=== PATIENT | male | born 1955 | race Caucasian/White ===

== ENCOUNTER 2020-02-26 20:10 | Inpatient (IN) | payer SELFPAY ==
[2020-02-26 20:53] LABS: #Eosinphils 0.1 thou/uL (0.0-0.7); #Lymphocytes 1.6 thou/uL (1.20-3.40); #Monocytes 0.6 thou/uL (0.11-0.59); #Neutrophils 5.9 thou/uL (1.40-6.50); %Basophils 0.3 % (0.0-1.0); %Eosinophils 1.6 % (0.0-10.0); %Lymphocytes 19.9 % (21.0-51.0); %Monocytes 7.3 % (0.0-10.0); %Neutrophils 70.9 % (42.0-75.0); Hemoglobin 7.1 g/dL (14.0-18.0); Mean Corpuscular HGB CONC 34.3 g/dL (32.0-36.0); Mean Corpuscular Hemoglobin 30.5 pg (27.0-31.0); Mean Corpuscular Volume 89.1 fL (78.0-98.0); Mean Platelet Volume 6.6 fL (7.4-10.4); Platelet Count 166 thou/uL (130-400); RBC Distribution Width 12.1 % (11.5-14.5); Red Blood Cell (RBC) Count 2.33 mill/uL (4.70-6.10); White Blood Cell (WBC) Count 8.3 thou/uL (4.8-10.8)
[2020-02-26 21:09] LABS: ALT (SGPT) 15 U/L (8-55); AST (SGOT) 18 U/L (5-34); Albumin 3.5 g/dL (3.4-4.8); Alkaline Phosphatase 31 U/L (40-110); Anion Gap 11 mmol/L (10-20); BUN (Urea Nitrogen) 41 mg/dL (8.4-25.7); Bilirubin, Total 0.2 mg/dL (0.2-1.2); Calc. Creatinine Clearance 0 mL/min (70-130); Calcium 8.5 mg/dL (7.8-10.44); Carbon Dioxide 21 mmol/L (23-31); Chloride 109 mmol/L (98-107); Estimated GFR-MDRD Greater than 90; Globulin 2.1 g/dL (2.4-3.5); Glucose 120 mg/dL (80-115); Potassium 3.8 mmol/L (3.5-5.1); Protein, Total 5.6 g/dL (5.8-8.1); Sodium 137 mmol/L (136-145)
[2020-02-26] MEDS ORDERED: Pantoprazole 40 MG VIAL ONE ×2 (22:30→22:31)
[2020-02-26] MEDS ORDERED: Ondansetron PF 4 MG/2 ML Vial IVP PRN (23:09)
[2020-02-26] MEDS ORDERED: Ondansetron ODT 4 MG TAB PO PRN (23:09)
[2020-02-26] MEDS ORDERED: Acetaminophen 325 MG TAB PO PRN (23:09)
[2020-02-26] MEDS ORDERED: Sodium Chloride 0.9% (PF) 10 ML VIAL FS PRN (23:16)
--- NOTE | 2020-02-26 23:23 | PDOC.FPRHP ---
- History of Present Illness Chief Complaint: lightheadedness History of Present Illness: 64 y/o M with pmhx of DM II, hypothyroidism, symptomatic anemia, and CAD s/p 2 stents presents to ED via EMS after having a near syncopal episode this afternoon. Pt states symptoms of LH and dizziness started yesterday evening. The symptoms are brought on by sitting up or standing up. The pt admits to similar symptoms last June. He was given 2 units of blood than and had an EGD and colonoscopy. He reports findings of "minor irritation in colon from those scopes." He had been on both 81 mg ASA and plavix, and the plavix was d/c'd at that time. PT had X2 stents placed the preceeding year, warranting the plavix. Pt states he has had melena stools since that time when he was started on PO iron supplementation. Pt denies any bloody stools or emesis. Admits to N/V this afternoon. Denies CP and palpitations, but reports exertional SOB. ED course: Brought in via EMS. Evaluated by Dr. Conrad. Hgb 7.1 Pt was given 2 L NS, and 2 units pRBC's. - Allergies/Adverse Reactions Allergies Allergy/AdvReac Type Severity Reaction Status Date / Time No Known Drug Allergies Allergy Verified 02/27/20 06:06 - Home Medications Medication Instructions Recorded Confirmed Type Aspirin [Aspirin EC] 81 mg PO DAILY 02/26/20 02/26/20 History Ferrous Sulfate [Feosol] 325 mg PO DAILY 02/26/20 02/26/20 History Levothyroxine Sodium 137 mcg PO DAILY 02/26/20 02/26/20 History Magnesium Oxide [Magnesium] 400 mg PO DAILY 02/26/20 02/26/20 History metFORMIN [Glucophage] 500 mg PO BID-WM 02/26/20 02/26/20 History - History PMHx: DM II, CAD s/p X2 stents, HTN, Hypothyroidism PSHx: X2 stent placement 2018, L elbow fx orif FHx: Brothers: CAD Father: DM II Mother: DM II Social: Works as an over the road urban planner. quit smoking cigarettes 8 years ago, has a hx of smoking 2 ppd for "many years" Drinks one etoh beverage a week. Denies ilicit drug use. - Review of Systems General: denies: fever/chills Eyes: denies: vision changes ENT: reports: nasal congestion. denies: rhinorrhea Respiratory: reports: congestion, exercise intolerance. denies: cough Cardiovascular: denies: chest pain, palpitation, edema Gastrointestinal: reports: nausea, vomiting, GI bleeding. denies: diarrhea, constipation, abdominal pain Skin: denies: rashes, jaundice Musculoskeletal: reports: pain (L shoulder chronic rotato cuff tear), arthritis/ arthralgias Neurological: reports: other (near syncope Headache this AM). denies: syncope Psychological: denies: anxiety, depression - Vital signs BP: 130/73 HR: 71 RR: 16 Tmax: 98.6 F Pox: 99% on ra Wt: 102.1 kg - Physical Exam Constitutional: NAD, awake, alert and oriented, well developed HEENT: normocephalic and atraumatic, PERRLA, EOMI, conjunctiva clear, no scleral icterus, grossly normal vision, grossly normal hearing, MMM Neck: supple, trachea midline Heart: RRR, normal S1/S2, no murmurs/rubs/gallops, pulses present, no edema Lungs: CTAB, no respiratory distress, good air movement, no rales/rhonchi, no wheezing, no retractions Abdomen: soft, non-tender, bowel sounds present, other (obese) Musculoskeletal: normal structure, normal tone, ROM grossly normal, other ( subjective pain with ROM L shoulder) Neurological: no focal deficit Skin: no rash/lesions, good turgor, capillary refill <2 seconds -Skin: pallor skin conjunctival pallor Heme/Lymphatic: no unusual bruising or bleeding, no purpura, no petechia Psychiatric: normal mood and affect, good judgment and insight, intact recent and remote memory FMR H&P: Results - Labs Result Diagrams: 02/27/20 04:15 02/27/20 04:15 Lab results: WBC 8.3 thou/uL (4.8-10.8) 02/26/20 20:48 Hgb 7.1 g/dL (14.0-18.0) L 02/26/20 20:48 Hct 20.8 % (42.0-52.0) L 02/26/20 20:48 MCV 89.1 fL (78.0-98.0) 02/26/20 20:48 Plt Count 166 thou/uL (130-400) 02/26/20 20:48 Neutrophils % 70.9 % (42.0-75.0) 02/26/20 20:48 Sodium 137 mmol/L (136-145) 02/26/20 20:48 Potassium 3.8 mmol/L (3.5-5.1) 02/26/20 20:48 Chloride 109 mmol/L (98-107) H 02/26/20 20:48 Carbon Dioxide 21 mmol/L (23-31) L 02/26/20 20:48 BUN 41 mg/dL (8.4-25.7) H 02/26/20 20:48 Creatinine 0.78 mg/dL (0.7-1.3) 02/26/20 20:48 Glucose 120 mg/dL (80-115) H 02/26/20 20:48 Calcium 8.5 mg/dL (7.8-10.44) 02/26/20 20:48 Total Bilirubin 0.2 mg/dL (0.2-1.2) 02/26/20 20:48 AST 18 U/L (5-34) 02/26/20 20:48 ALT 15 U/L (8-55) 02/26/20 20:48 Alkaline Phosphatase 31 U/L (40-110) L 02/26/20 20:48 Serum Total Protein 5.6 g/dL (5.8-8.1) L 02/26/20 20:48 Albumin 3.5 g/dL (3.4-4.8) 02/26/20 20:48 - EKG Interpretation EKG: NSR rate 72 No STEMI FMR H&P: A/P - Problem List (1) Symptomatic anemia Current Visit: Yes Status: Acute Code(s): D64.9 - ANEMIA, UNSPECIFIED (2) Melena Current Visit: Yes Status: Acute Code(s): K92.1 - MELENA (3) Diabetes mellitus type 2 in obese Current Visit: Yes Status: Chronic Code(s): E11.69 - TYPE 2 DIABETES MELLITUS WITH OTHER SPECIFIED COMPLICATION; E66.9 - OBESITY, UNSPECIFIED (4) Hypothyroidism Current Visit: Yes Status: Chronic Code(s): E03.9 - HYPOTHYROIDISM, UNSPECIFIED (5) Presence of stent in coronary artery in patient with coronary artery disease Current Visit: Yes Status: Chronic Code(s): I25.10 - ATHSCL HEART DISEASE OF [place] CORONARY ARTERY W/O ANG PCTRS; Z95.5 - PRESENCE OF CORONARY ANGIOPLASTY IMPLANT AND GRAFT (6) Hx of essential hypertension Current Visit: Yes Status: Chronic Code(s): Z86.79 - PERSONAL HISTORY OF OTHER DISEASES OF THE CIRCULATORY SYSTEM - Plan 64 y/o M admitted to medical obs for further treatment and eval of symptomatic anemia with melena, most likely cause if Upper GI Bleeding 1. Symptomatic anemia - hbg 7.1, sx's near syncope - transfused 2 units pRBCs in ED and received 2 L NS - Trend H/H in AM and then Q8H to monitor for bleeding. - Placed on Ferrous fumerate and vit c for better iron absorption - ordered TIBC, iron, transferrin and ferritin - ordered B12 and folate 2. Melena, most liekly caused by Upper GI Bleeding - ordered FOBT - placed pt on prtonix BID, given bolus and started on drip in ED. - NPO - GI consulted, appreciate recommendations - has hx of GI bleed in with normal EGD and mild irritation in colon per pt. 3. Normocytic Anemia - TIBC, iron, Ferritin, and transferrin ordered - B12 and folate ordered - could be acute blood loss, combination macr and micro anemia, or chronic disease 4. Hypothyroidism - continue levothyroxine 137 mcg daily - ordered TSH 5. DM II - continue metformin 500 mg BID - Ordered A1C 6. CAD s/p X2 stents, stable - hold ASA 81 mg at this time until evaluated by GI. - No CP 7. 7. Hx of HTN, stable - Not currently on BP medications - BP 130/73 Code status: full code, MPOA VTE ppx: SCD's Diet: NPO until Seen by GI. Dispo: stable, medical obs <2 midnights anticipated. FMR H&P: Upper Level - Pertinent history 64 y/o M PMHx DM2, hypothyroidism, CAD s/p 2 stents Pt presents because of dizziness with standing and worsened fatigue. He has been diagnosed with iron deficiency anemia and is on iron. He reports dark black stools, but isn't sure if it's due to that. He denies any hematemesis or hematochezia. He has had prior EGD and colonoscopy and reports he had some lesions that didn't get treated. He isn't sure exactly what they were. He reports his lightheadedness is improved after getting fluids. - Pertinent findings Vitals: BP 122/77, HR 76, RR 20, Temp 98.2 PE: Gen - pale, resting comfortably, in NAD HEENT - conjunctival pallor CV - RRR, no murmurs Lungs - CTAB no wheezes Labs: Hb 7.1 - Plan Date/Time: 02/26/20 5689 I, Judi Perez MD, PGY-3, have evaluated this patient and agree with findings/ plan as outlined by commercial intern resident. Pertinent changes/additions are listed here. 1. Acute Symptomatic Anemia Hb 7.1, suspect GI source, but cannot rule out other causes yet -2U PRBC -Trend H/H -Check iron studies, B12, folate, peripheral smear, retic count -FOBT -Consult GI in AM -Protonix IV BID 2. CAD -Hold aspirin due to suspected bleed 3. DM2 -Cont Metformin -Accuchecks -SSI 4. Hypothyroidism -Continue synthroid Diet: NPO Code status: Full VTE ppx: SCD's GI ppx: Protonix Dispo: Obs on medical LOS: < 48 hrs Addendum - Attending - Attending Attestation Date/Time: 02/27/20 5620 I personally evaluated the patient and discussed the management with Dr. Segura and team. I agree with the History, Examination, Assessment and Plan documented above with any addition or exceptions noted below.
[2020-02-27 00:07] VITALS: BMI 29.5
[2020-02-27] MEDS: Sodium Chloride 0.9% 1,000 ML IV SCH ×2 (00:58→06:10)
[2020-02-27 01:04] LABS: Iron 48 ug/dL (65-175); Iron Binding Capacity, Total 258 mcg/dL (261-462); Transferrin, Serum 206 mg/dL (163-344)
[2020-02-27 01:23] LABS: Thyroid Stimulating Hormone 3.8084 uIU/mL (0.35-4.94)
[2020-02-27 03:34] LABS: Ferritin 3.78 ng/mL (22-322)
[2020-02-27 04:50] LABS: Reticulocyte Count 5.4 % (0.5-1.5)
[2020-02-27 05:15] LABS: ALT (SGPT) 14 U/L (8-55); AST (SGOT) 20 U/L (5-34); Albumin 3.6 g/dL (3.4-4.8); Alkaline Phosphatase 31 U/L (40-110); Anion Gap 10 mmol/L (10-20); BUN (Urea Nitrogen) 29 mg/dL (8.4-25.7); Bilirubin, Total 0.2 mg/dL (0.2-1.2); Calc. Creatinine Clearance 151 mL/min (70-130); Calcium 8.3 mg/dL (7.8-10.44); Carbon Dioxide 22 mmol/L (23-31); Chloride 109 mmol/L (98-107); Estimated GFR-MDRD Greater than 90; Globulin 2.1 g/dL (2.4-3.5); Glucose 109 mg/dL (80-115); Potassium 3.7 mmol/L (3.5-5.1); Protein, Total 5.7 g/dL (5.8-8.1); Sodium 137 mmol/L (136-145)
[2020-02-27 06:06] LABS: Band 8 % (5-11); Eosinophils 4 % (0-10); Hemoglobin 7.5 g/dL (14.0-18.0); Lymphocytes 36 % (21-51); MDiff Complete? YES; Mean Corpuscular HGB CONC 33.8 g/dL (32.0-36.0); Mean Corpuscular Hemoglobin 30.6 pg (27.0-31.0); Mean Corpuscular Volume 90.7 fL (78.0-98.0); Mean Platelet Volume 7.4 fL (7.4-10.4); Monocytes 3 % (0-10); Neutrophil 49 % (42-75); Platelet Count 171 thou/uL (130-400); RBC Distribution Width 12.4 % (11.5-14.5); Red Blood Cell (RBC) Count 2.46 mill/uL (4.70-6.10); White Blood Cell (WBC) Count 6.5 thou/uL (4.8-10.8)
[2020-02-27] MEDS: Levothyroxine Sodium 25 MCG TAB PO SCH (06:11)
[2020-02-27] MEDS: Levothyroxine Sodium 112 MCG TAB PO SCH (06:11)
--- NOTE | 2020-02-27 06:53 | PDOC.FM ---
- Subjective Subjective: Pt denies any complaints this morning. No events overnight. Denies any further dizziness but notes he really has not but up and moving around at all. Continues to deny any bright red blood per rectum and states his stools are always dark due to his iron supplement. - Objective Vital Signs & Weight: Vital Signs (12 hours) Temp Pulse Pulse Resp BP BP BP 02/27/20 06:42 97.7 F 66 18 103/67 02/27/20 04:40 97.7 F 60 18 103/64 02/27/20 04:00 97.8 F 65 65 18 116/73 116/73 02/27/20 01:00 02/27/20 00:54 97.7 F 62 18 98/63 02/26/20 23:45 98.6 F 72 20 112/67 02/26/20 23:09 98.0 F 72 18 112/67 BP BP Pulse Ox 02/27/20 06:42 02/27/20 04:40 96 02/27/20 04:00 97 02/27/20 01:00 98/63 02/27/20 00:54 97 02/26/20 23:45 97 02/26/20 23:09 100/63 97 Weight Weight 104.326 kg I&O: 02/25/20 02/26/20 02/27/20 06:59 06:59 06:59 Intake Total 1750 Output Total 950 Balance 800 Result Diagrams: 02/27/20 04:15 02/27/20 04:15 Phys Exam - Physical Examination Constitutional: NAD HEENT: moist MMs Respiratory: clear to auscultation bilateral Cardiovascular: RRR Gastrointestinal: no distention Musculoskeletal: no edema, pulses present Neurological: moves all 4 limbs Psychiatric: normal affect, A&O x 3 Skin: no rash, cap refill <2 seconds Dx/Plan (1) Melena Code(s): K92.1 - MELENA Status: Acute (2) Symptomatic anemia Code(s): D64.9 - ANEMIA, UNSPECIFIED Status: Acute (3) Diabetes mellitus type 2 in obese Code(s): E11.69 - TYPE 2 DIABETES MELLITUS WITH OTHER SPECIFIED COMPLICATION; E66.9 - OBESITY, UNSPECIFIED Status: Chronic (4) Hx of essential hypertension Code(s): Z86.79 - PERSONAL HISTORY OF OTHER DISEASES OF THE CIRCULATORY SYSTEM Status: Chronic (5) Hypothyroidism Code(s): E03.9 - HYPOTHYROIDISM, UNSPECIFIED Status: Chronic (6) Presence of stent in coronary artery in patient with coronary artery disease Code(s): I25.10 - ATHSCL HEART DISEASE OF [place] CORONARY ARTERY W/O ANG PCTRS; Z95.5 - PRESENCE OF CORONARY ANGIOPLASTY IMPLANT AND GRAFT Status: Chronic - Plan Plan: Symptomatic anemia - hbg 7.5 this morning, 2 units ordered - last unit currently transfusing - 4 hr post H&H ordered - iron and ferritin both low - may need infusions in the future - b12 and folate WNL Melena, possible GI Bleed - placed pt on protonix BID - NPO - GI consulted, appreciate recommendations - has hx of GI bleed in with normal EGD and mild irritation in colon per pt. Hypothyroidism - continue levothyroxine 137 mcg daily DM II - continue metformin 500 mg BID CAD s/p X2 stents, stable - hold ASA 81 mg at this time until evaluated by GI. - No CP Hx of HTN, stable - Not currently on BP medications Code status: full code, MPOA VTE ppx: SCD's Diet: NPO until Seen by GI. Dispo: Medical Inpt for symptomatic anemia and suspected GI bleed. GI consult today. Addendum - Attending - Attending Attestation Date/Time: 02/27/20 1202 I personally evaluated the patient and discussed the management with Dr. Melendez. I agree with the History, Examination, Assessment and Plan documented above with any addition or exceptions noted below. Patient here for symptomatic anemia and suspected UGIB. GI consulted. Anemia workup.
[2020-02-27] MEDS: metFORMIN 500 MG TAB PO SCH ×2 (08:19→16:25)
[2020-02-27] MEDS: Pantoprazole 40 MG VIAL IVP SCH ×2 (08:19→20:11)
--- NOTE | 2020-02-27 08:51 | RAD ---
CHEST 1 VIEW: HISTORY: Dizziness. COMPARISON: None. FINDINGS: There is a subtle nodule in the right lung base measuring 5-6 mm. There is a nodule in the right upp er lobe which is relatively dense, likely calcified granuloma. The remainder of the lungs are clear. Cardiac silhouette and mediastinal contours are within normal limits. No pneumothorax or effusion or airspace consolidation. IMPRESSION: A 4-5 mm nodule projects in the right lower lobe. This could be a pulmonary seen en face. Nonemerge nt followup CT of the chest can be beneficial. POS: HOME
[2020-02-27] MEDS ORDERED: Ascorbic Acid 500 mg Chewable Tablet PO SCH (09:00)
[2020-02-27] MEDS ORDERED: Non-Formulary Item 1 EACH (Levothyroxine Sodium [Levothyroxine Sodium] 137 MCG) PO SCH (09:00)
[2020-02-27] MEDS ORDERED: Ferrous Sulfate 325 MG TAB PO SCH (09:00)
[2020-02-27] MEDS ORDERED: Ferrous Fumarate 324 MG TAB PO SCH (09:00)
[2020-02-27] MEDS ORDERED: Pantoprazole 40 MG VIAL IVP SCH ×2 (09:00)
[2020-02-27 12:04] LABS: Reticulocyte Count 5.1 % (0.5-1.5)
[2020-02-27 12:05] LABS: Hemoglobin 8.7 g/dL (14.0-18.0)
--- NOTE | 2020-02-27 12:10 | CON ---
DATE OF CONSULTATION: 02/27/2020 CHIEF COMPLAINT: Weakness. HISTORY OF PRESENT ILLNESS: Mr. 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 He came onto the emergency room because he had similar symptoms back in 06/2019, when he was found to have severe anemia, requiring blood transfusion. He had had stents placed a couple of years before. Last June, he had EGD and colonoscopy in [place], [place], to evaluate for bleeding source. These reportedly only showed a couple of irritated sites, but no obvious bleeding source was identified. He was taken off his Plavix and left on aspirin 81 mg daily. The patient has maintained oral iron supplementation since then. His stools are always dark on that and he has not noticed an acute change with this acute weakness episode. He has had no red blood in the stool. His weight has been stable. No abdominal pain. He was found to have anemia with a hemoglobin of 7.5 in the emergency room last night. His ferritin is low at 3.78. PAST MEDICAL HISTORY: 1. Diabetes mellitus, type 2. 2. Coronary artery disease status post coronary stents. 3. Hypertension. 4. Hypothyroidism. PAST SURGICAL HISTORY: 1. Left elbow surgery. 2. Upper and lower endoscopy last June. 3. Coronary stent placement. FAMILY HISTORY: Negative for GI malignancy. SOCIAL HISTORY: He quit smoking around 8 years ago. He smoked pretty heavily before that. He has 1 alcoholic beverage per week. No drugs. ALLERGIES: NO KNOWN DRUG ALLERGIES. MEDICATIONS: Prior to admission: 1. Aspirin 81 mg daily. 2. Iron sulfate 325 mg daily. 3. Levothyroxine. 4. Magnesium. 5. Metformin. REVIEW OF SYSTEMS: Negative x10 systems reviewed except as stated in the history of present illness. PHYSICAL EXAMINATION: VITAL SIGNS: Temperature 97.8, pulse 65, and blood pressure 119/68. GENERAL: He is in no acute distress. Alert and oriented x3. HEENT: Eyes have no scleral icterus. Oropharynx is clear without lesions. No cervical or supraclavicular lymphadenopathy. LUNGS: Clear to auscultation bilaterally. HEART: Regular rate and rhythm without murmur. ABDOMEN: Soft, nontender, and nondistended. Bowel sounds are present. EXTREMITIES: No lower extremity edema. LABORATORY DATA: Creatinine 0.75, bilirubin 0.2, AST 20, ALT 14, alkaline phosphatase 31, and albumin is 3.6. B12 of 405, folate 14.9, ferritin 3.78, iron 48, and TIBC 258. Hemoglobin 7.5, white blood cell count 6.5, platelets 171, and MCV 90. IMPRESSION: 1. Iron-deficiency anemia. He had anemia as well in last June and required a blood transfusion, and upper and lower endoscopy were performed, but reportedly negative. 2. Coronary artery disease status post stents a couple of years ago or so. He is on 81 mg aspirin daily. RECOMMENDATIONS: 1. Push enteroscopy and colonoscopy tomorrow. If these tests are negative, then outpatient capsule endoscopy can be performed. 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 2. Obtain the report from the previous EGD and colonoscopy from [place] if possible. Job ID: [id number]
[2020-02-27] MEDS: Ferrous Sulfate 325 MG TAB PO SCH (16:25)
[2020-02-27] MEDS: Ascorbic Acid 500 mg Chewable Tablet PO SCH (16:25)
[2020-02-27] MEDS ORDERED: GoLYTELY 4,000 ml Bottle PO SCH (17:00)
[2020-02-28 06:08] LABS: #Eosinphils 0.2 thou/uL (0.0-0.7); #Lymphocytes 1.5 thou/uL (1.20-3.40); #Monocytes 0.6 thou/uL (0.11-0.59); #Neutrophils 3.6 thou/uL (1.40-6.50); %Basophils 0.7 % (0.0-1.0); %Eosinophils 3.8 % (0.0-10.0); %Lymphocytes 25.1 % (21.0-51.0); %Monocytes 10.6 % (0.0-10.0); %Neutrophils 59.8 % (42.0-75.0); Hemoglobin 9.5 g/dL (14.0-18.0); Mean Corpuscular HGB CONC 34.2 g/dL (32.0-36.0); Mean Corpuscular Hemoglobin 31.2 pg (27.0-31.0); Mean Corpuscular Volume 91.2 fL (78.0-98.0); Mean Platelet Volume 7.4 fL (7.4-10.4); Platelet Count 175 thou/uL (130-400); RBC Distribution Width 12.8 % (11.5-14.5); Red Blood Cell (RBC) Count 3.04 mill/uL (4.70-6.10)
[2020-02-28 06:26] LABS: Anion Gap 13 mmol/L (10-20); BUN (Urea Nitrogen) 16 mg/dL (8.4-25.7); Calc. Creatinine Clearance 143 mL/min (70-130); Calcium 8.5 mg/dL (7.8-10.44); Carbon Dioxide 23 mmol/L (23-31); Chloride 108 mmol/L (98-107); Estimated GFR-MDRD Greater than 90; Glucose 104 mg/dL (80-115); Potassium 3.8 mmol/L (3.5-5.1); Sodium 140 mmol/L (136-145)
[2020-02-28] MEDS: Levothyroxine Sodium 25 MCG TAB PO SCH (06:41)
[2020-02-28] MEDS: Levothyroxine Sodium 112 MCG TAB PO SCH (06:41)
--- NOTE | 2020-02-28 07:05 | PDOC.FM ---
- Subjective Subjective: Pt is s/p push enteroscopy and colonoscopy. States he is feeling well, just groggy from the procedure. Discussed plan of care including iron infusion and trending hgb later today. Will discuss op with Dr. Ashraf regarding findings. - Objective Vital Signs & Weight: Vital Signs (12 hours) Temp Pulse Resp BP BP Pulse Ox 02/28/20 04:00 97.7 F 60 18 113/72 95 02/27/20 19:37 97.6 F 63 16 125/77 96 Weight Weight 104.326 kg I&O: 02/27/20 02/28/20 02/29/20 06:59 06:59 06:59 Intake Total 1750 Output Total 950 Balance 800 Result Diagrams: 02/28/20 05:23 02/28/20 05:23 Phys Exam - Physical Examination Constitutional: NAD HEENT: moist MMs, sclera anicteric Respiratory: clear to auscultation bilateral Cardiovascular: RRR Gastrointestinal: soft, non-tender Musculoskeletal: no edema Neurological: moves all 4 limbs Psychiatric: A&O x 3 Skin: no rash Dx/Plan (1) Melena Code(s): K92.1 - MELENA Status: Acute (2) Symptomatic anemia Code(s): D64.9 - ANEMIA, UNSPECIFIED Status: Acute (3) Diabetes mellitus type 2 in obese Code(s): E11.69 - TYPE 2 DIABETES MELLITUS WITH OTHER SPECIFIED COMPLICATION; E66.9 - OBESITY, UNSPECIFIED Status: Chronic (4) Hx of essential hypertension Code(s): Z86.79 - PERSONAL HISTORY OF OTHER DISEASES OF THE CIRCULATORY SYSTEM Status: Chronic (5) Hypothyroidism Code(s): E03.9 - HYPOTHYROIDISM, UNSPECIFIED Status: Chronic (6) Presence of stent in coronary artery in patient with coronary artery disease Code(s): I25.10 - ATHSCL HEART DISEASE OF [place] CORONARY ARTERY W/O ANG PCTRS; Z95.5 - PRESENCE OF CORONARY ANGIOPLASTY IMPLANT AND GRAFT Status: Chronic - Plan Plan: Symptomatic anemia - hbg 9.5 this morning, s/p 2 units - iron and ferritin both low - may need iron infusion prior to discharge, oral changed to BID w/ Vit C - b12 and folate WNL Melena, possible GI Bleed - placed pt on protonix BID - NPO - GI, Dr. Ashraf, consulted, plan for EGD/colonoscopy today - has hx of GI bleed in with normal EGD and mild irritation in colon per pt. Hypothyroidism - continue levothyroxine 137 mcg daily DM II - continue metformin 500 mg BID CAD s/p X2 stents, stable - hold ASA 81 mg at this time until procedure finished - No CP Hx of HTN, stable - Not currently on BP medications Code status: full code, MPOA VTE ppx: SCD's Diet: NPO until scopes Dispo: Medical Inpt for symptomatic anemia and suspected GI bleed. Endoscopy today Addendum - Attending - Attending Attestation Date/Time: 02/28/20 0328 I personally evaluated the patient and discussed the management with Dr. Melendez. I agree with the History, Examination, Assessment and Plan documented above with any addition or exceptions noted below. Patient going for endoscopy today to evaluate his anemia. H/H stable. Further mgmt pending that result.
[2020-02-28] MEDS: metFORMIN 500 MG TAB PO SCH ×2 (07:50→17:52)
[2020-02-28] MEDS: Pantoprazole 40 MG VIAL IVP SCH (07:50)
[2020-02-28] MEDS: Ascorbic Acid 500 mg Chewable Tablet PO SCH ×2 (07:50→17:52)
[2020-02-28] MEDS: Ferrous Sulfate 325 MG TAB PO SCH ×2 (07:50→17:52)
[2020-02-28] MEDS ORDERED: Sodium Chloride 0.9% (PF) 10 ML VIAL FS PRN (10:04)
[2020-02-28 11:51] VITALS: BP 128/78; TEMP 97.3
[2020-02-28] MEDS ORDERED: PROPOFOL 200 MG/20 ML VIAL ONE (11:53)
[2020-02-28] MEDS ORDERED: Iron, Sodium Ferric Gluconate 125 MG in Sodium Chloride 0.9% 100 ML IVPB SCH (12:45)
--- NOTE | 2020-02-28 15:53 | OP ---
DATE OF PROCEDURE: 02/28/2020 PROCEDURES PERFORMED: 1. Esophagogastroduodenoscopy with push enteroscopy and control of hemorrhage. 2. Colonoscopy with snare polypectomy. PREOPERATIVE DIAGNOSIS: Iron deficiency anemia. DESCRIPTION OF PROCEDURE: Informed consent was obtained from the patient. He was sedated with total intravenous anesthesia. The bite block was placed and the was advanced down to the proximal jejunum. The esophagus was normal. The GE junction was normal. The stomach had a couple of small erosions in the antrum without any evidence of stigmata of recent bleeding. Retroflexed views in the stomach were unremarkable. The pylorus was normal. The first portion of the duodenum had diffuse erythematous duodenitis. This area did not actively bleed. There was some one small erosion in the first portion of the duodenum. The second, third, and fourth portions of the duodenum and proximal jejunum had multiple tiny submillimeter red spots scattered throughout. These could be tiny AVMs. A couple of more prominent areas actually 4 more prominent red areas that may have been AVMs were cauterized with argon plasma coagulation. However, these did not actively bleed with manipulation. A segment of the erythematous duodenitis was cauterized with argon plasma and again this did not bleed with manipulation as would be expected if this was all actually vascular ectasia. Air was suctioned from the stomach. The patient was turned around. Rectal exam was performed and was normal. The colonoscope was advanced to the terminal ileum with ease. The mucosa of the terminal ileum was nodular, consistent with lymphoid aggregates. Again, multiple tiny red spots were noted throughout the terminal ileum. The ileocecal valve and appendiceal orifice were unremarkable. The preparation quality was good. I removed a 3 mm polyp from the hepatic flexure by cold snare polypectomy. There was moderate diverticulosis of the sigmoid and descending colon. The remainder of the colonic mucosa was normal. Retroflexed views in the rectum were normal. IMPRESSION: 1. Mild erosive antral gastritis. 2. Erythematous duodenitis in the first portion. This was quite red, but did not appear to be obviously vascular ectasias. I did cauterize a segment of this and it did not bleed with manipulation. 3. Small red spots throughout the duodenum and proximal jejunum and terminal ileum. These did not have active bleeding. These might represent tiny submillimeter arteriovenous malformations with chronic bleeding as a cause for his iron deficiency. There were 4 of these that were more prominent, measuring around 4 mm and slightly raised and I cauterized those with argon plasma coagulation. Again, these did not bleed with manipulation to verify these were obvious arteriovenous malformations. 4. A 3 mm polyp was removed by cold snare polypectomy from the hepatic flexure. 5. Diverticulosis of the sigmoid and descending colon. 6. Otherwise, normal colonoscopy except for the tiny red spots in the terminal ileum. RECOMMENDATIONS: 1. Iron supplementation. 2. Proton pump inhibitor daily in light of the mild erosions in the stomach and duodenum. 3. Await histopathology. Repeat colonoscopy in 5 to 7 years if the polyp is confirmed to be an adenoma. 4. Advance diet. 5. Please note that the patient had a small volume of frothy bilious emesis that was suctioned from his mouth without obvious aspiration. We will still need to monitor postoperatively for signs of aspiration. Job ID: [id number]
--- NOTE | 2020-02-29 03:06 | DIS ---
DATE OF ADMISSION: 02/26/2020 DATE OF DISCHARGE: 02/28/2020 ADMITTING ATTENDING: Bill Fitzpatrick MD DISCHARGE ATTENDING: Benja Salazar MD. RESIDENT: Steven Melendez DO. CONSULTATION: Gastroenterology Dr. Clay Ashraf. PROCEDURES: Colonoscopy and push enteroscopy on 02/28/2020. FINDINGS: Mild erosive antral gastritis. Erythematous duodenitis in the 1st portion. Small red spots throughout the duodenum and proximal jejunum and terminal ileum that did not have active bleeding, which may represent tiny submillimeter arterial venous malformations with chronic bleeding. There were 4 of these that were most prominent measuring around 4 mm that were cauterized with argon plasma. A 3 mm polyp at the hepatic flexure that was removed via cold snare. Diverticulosis in sigmoid and descending colon. IMAGING: Chest x-ray 02/26/2020. Impression: A 4 to 5 mm nodule in right lower lobe, nonemergent followup CT of chest recommended. PRIMARY DIAGNOSES: 1. Symptomatic iron deficiency anemia. 2. 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 SECONDARY DIAGNOSES: 1. Type 2 diabetes. 2. Hypothyroidism. 3. Essential hypertension. DISCHARGE MEDICATIONS: 1. Magnesium oxide 400 mg daily. 2. Feosol 325 mg BID daily. 3. Aspirin 81 mg daily. 4. Metformin 500 mg b.i.d. 5. Levothyroxine 137 mcg daily. 6. Ascorbic acid 500 mg b.i.d. 7. Omeprazole 20 mg daily. HISTORY OF PRESENT ILLNESS AND HOSPITAL COURSE: A 64-year-old male with past medical history of symptomatic anemia secondary to presumed GI bleed, presented to the ED via EMS after having a near syncopal episode. The patient states that he has been having melenic stools; however, this is mostly chronic for him as he is on chronic oral iron supplementation for a history of symptomatic anemia that was presumed to be secondary to gastrointestinal bleed, although had a reportedly normal EGD and colonoscopy a little over a year ago that just showed mild irritation of his stomach. Workup in the emergency department was significant for a hemoglobin of 7.1. The patient was subsequently admitted to the hospital for GI evaluation and repletion of his blood. On admission, patient was transfused 2 units and had a subsequent increase in his hemoglobin to 9.5. The patient then received a colonoscopy and push enteroscopy by consulting supervisor assembling Dr. Clay Ashraf. This procedure was significant for a couple areas of gastric irritation and possible AV malformations that were not actively bleeding throughout his small intestine. Dr. Ashraf suggested that the patient followup with his PCP for this and may need a pill endoscopy in the future, if he continues to become symptomatically anemic. Prior to discharge, the patient was also infused iron due to the findings of both low ferritin and iron on his original blood work. I discussed the need for twice daily oral iron supplementation with addition of vitamin C to increase absorption upon discharge. Also started the patient on omeprazole to decrease acidic irritation of possible AVMs. The patient expressed understanding prior to discharge and stated that he has a followup with his primary care doctor already established for next week. DISCHARGE INSTRUCTIONS: Location: Home. Diet: Diabetic. Activity: As tolerated. Followup: Follow up with PCP within 7 days, follow up with Gastroenterology as needed. Job ID: [id number]
== END 2020-02-28 18:11 | disposition home or self-care (01) | DRG 811 ==
LOC: ERS 20:10 → OBSVTOIN 23:44 → T4-B 23:44
PROVIDERS: ADMIT Emergency Medicine; ATTEND Emergency Medicine
PROC: 30233N1 Transfusion of Nonautologous Red Blood Cells into Peripheral Vein, Percutaneous Approach (ICD-10-PCS; 2020-02-26)
PROC: 0W3P8ZZ Control Bleeding in Gastrointestinal Tract, Via Natural or Artificial Opening Endoscopic (ICD-10-PCS; principal; 2020-02-28)
PROC: 0DBL8ZZ Excision of Transverse Colon, Via Natural or Artificial Opening Endoscopic (ICD-10-PCS; 2020-02-28)
DX: D50.9 Iron deficiency anemia, unspecified (principal); K55.21 Angiodysplasia of colon with hemorrhage; E11.9 Type 2 diabetes mellitus without complications; E03.9 Hypothyroidism, unspecified; I25.10 Atherosclerotic heart disease of native coronary artery without angina pectoris; E66.9 Obesity, unspecified; I10 Essential (primary) hypertension; K25.9 Gastric ulcer, unspecified as acute or chronic, without hemorrhage or perforation; K26.9 Duodenal ulcer, unspecified as acute or chronic, without hemorrhage or perforation; K63.5 Polyp of colon; K57.30 Diverticulosis of large intestine without perforation or abscess without bleeding; K29.80 Duodenitis without bleeding; Z95.5 Presence of coronary angioplasty implant and graft; Z79.84 Long term (current) use of oral hypoglycemic drugs; Z79.82 Long term (current) use of aspirin; Z79.899 Other long term (current) drug therapy; Z87.891 Personal history of nicotine dependence; Z68.29 Body mass index [BMI] 29.0-29.9, adult
CPT/HCPCS: 36415; 36416; 36430; 71045; 80048; 80053; 82274; 82607; 82728; 82746; 83036; 83540; 83550; 83735; 84443; 84466; 84484; 85007; 85025; 85027; 85046; 85060; 86850; 86900; 86901; 88305; 93005; 96360; 96361; 96374; C9113; J2704; J2916; J3490; P9016